=== PATIENT | female | born 1945 | race Caucasian/White ===

== ENCOUNTER → 2017-02-25 | Outpatient (CLI) | payer MEDICARE, OTHER | END | disposition home or self-care (01) | LOC: GMAJ 10:24 | PROVIDERS: ATTEND Family Medicine | DX: I10 Essential (primary) hypertension (principal) ==

== ENCOUNTER → 2017-03-01 | Outpatient (CLI) | payer MEDICARE, OTHER ==
--- NOTE | 2017-03-02 08:55 | MRI ---
EXAM DESCRIPTION: Abdomen w/wo Contrast CLINICAL HISTORY: 71 years, Female, HEPATIC LESION COMPARISON: None. TECHNIQUE: MRI before multiple sequences of the abdomen with and without gadolinium contrast FINDINGS: Liver appears unremarkable. No evidence of masses. No evidence of significant fatty infiltration. Left kidney slightly atrophic. Right kidney and the adrenal glands unremarkable. Pancreas and spleen gallbladder unremarkable. No fluid masses or adenopathy seen abdomen. The included bowel appear unremarkable. As well as the lung bases and surrounding soft tissues. IMPRESSION: Unremarkable MRI of the abdomen Electronically signed by: Umberto Bonilla MD 03/02/2017 8:54 AM CDT
== END ==
LOC: MRI 08:22
PROVIDERS: ATTEND Family Medicine
DX: D37.6 Neoplasm of uncertain behavior of liver, gallbladder and bile ducts (principal)

== ENCOUNTER → 2017-03-11 | Outpatient (CLI) | payer MEDICARE, OTHER ==
--- NOTE | 2017-03-14 10:35 | US ---
EXAM DESCRIPTION: Bladder CLINICAL HISTORY: 71 years Female, OVERFLOW INCONTINENCE COMPARISON: None. FINDINGS: Sonographic evaluation of the bladder before and after voiding was obtained with the bladder volume small on the prevoiding study with moderate thickening of the bladder wall consistent with either a poorly distensible or incompletely distended bladder. A focal bladder wall mass or filling defect is not apparent with the prevoiding bladder volume estimated at 91 mL. Post voiding modest residual within the bladder is evident with the post voiding residual urine estimated at 66 mL with slightly greater thickening of the bladder wall. IMPRESSION: Small bladder volume with thick-walled bladder with a prevoiding volume of 91 mL and post voiding bladder volume of 66 mL. No focal lesions are identified. Electronically signed by: Chirag Portillo MD 03/14/2017 10:34 AM CDT
--- NOTE | 2017-03-14 11:01 | MRI ---
EXAM DESCRIPTION: Brain w/oContrast CLINICAL HISTORY: MEMORY LOSS COMPARISON: None available TECHNIQUE: Non contrast MRI of the brain is performed according to our usual protocol including multiplanar multi sequence technique. FINDINGS: MRI of the brain without contrast enhancement demonstrates mild age-appropriate atrophic changes with very slight prominence of the lateral ventricular system which is felt to be within the upper range of normal for the patient's age. Mild scattered periventricular white matter changes in both cerebral hemispheres is present with sparing of the brainstem and posterior fossa. No extra-axial fluid collections or midline shift or mass effect is noted. No restricted diffusion to suggest acute or subacute ischemia is seen. No evidence of acute or remote intracranial hemorrhage is noted. The visualized cerebellopontine angles and IACs are normal. The sellar and suprasellar region is normal. IMPRESSION: Mild age-related atrophic changes and periventricular white matter changes without acute abnormality. Electronically signed by: Chirag Portillo MD 03/14/2017 11:01 AM CDT
== END ==
LOC: US 12:50
PROVIDERS: ATTEND Family Medicine
DX: R41.82 Altered mental status, unspecified (principal); N39.490 Overflow incontinence

== ENCOUNTER → 2017-05-02 | Outpatient (CLI) | payer MEDICARE, OTHER | END | disposition home or self-care (01) | LOC: YCFC.O 09:08 | PROVIDERS: ATTEND Anesthesiology Pain Medicine | DX: Z79.891 Long term (current) use of opiate analgesic (principal) ==

== ENCOUNTER → 2017-07-19 | Outpatient (CLI) | payer MEDICARE, OTHER | END | disposition home or self-care (01) | LOC: YCFC.O 15:17 | PROVIDERS: ATTEND Anesthesiology Pain Medicine | DX: Z79.891 Long term (current) use of opiate analgesic (principal) ==

== ENCOUNTER 2017-11-17 07:08 | Observation (INO) | payer MEDICARE, OTHER ==
[2017-11-17] MEDS ORDERED: SODIUM CHLORIDE 0.9% (FLUSH) 10 ML SYG IV PRN ×2 (07:18→12:09)
[2017-11-17] MEDS ORDERED: ASPIRIN TABLET 325 MG TAB PO ONE (07:18)
[2017-11-17] MEDS ORDERED: NITROGLYCERIN 0.4 MG 25 EA TAB SL ONE (07:18)
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
[2017-11-17] MEDS ORDERED: SODIUM CHLORIDE 0.9% 500ML 500 ML IVS ONE (07:22)
--- NOTE | 2017-11-17 08:06 | RAD ---
EXAM DESCRIPTION: Chest,1 View CLINICAL HISTORY: pain COMPARISON: October 14, 2008 IMPRESSION: Single upright portable frontal view of the chest. Evaluation is somewhat limited due to patient's body habitus and technique. Given this limitation, cardiac silhouette shows upper limits heart size. Subtle linear opacities in the bilateral lung bases, most likely representing linear atelectasis. Otherwise, lungs are clear without definite focal consolidative infiltrates. No significant pleural effusion. No pneumothorax. Electronically signed by: Umberto Sylvester MD 11/17/2017 8:05 AM CERTIFIED NUCLEAR MEDICINE TECHNOLOGIST
[2017-11-17] MEDS ORDERED: NITROFURANTOIN MONOHYDRATE MAC 100 MG CAP PO ONE (10:25)
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
[2017-11-17] MEDS ORDERED: DEXTROSE 50% 25 GM/50 ML SYG IV PRN (12:09)
[2017-11-17] MEDS ORDERED: GLUCAGON INJ 1 MG VIAL SUBCU PRN (12:09)
[2017-11-17] MEDS ORDERED: ACETAMINOPHEN 325 MG TAB PO PRN (12:09)
[2017-11-17] MEDS ORDERED: MORPHINE SULFATE INJ 10 MG/ML VIAL IV PRN (12:09)
[2017-11-17] MEDS ORDERED: NITROGLYCERIN 0.4 MG 25 EA TAB SL PRN (12:09)
[2017-11-17] MEDS ORDERED: IV SET AND CAP CHANGE INJ INJ SCH (12:30)
[2017-11-17] MEDS ORDERED: SODIUM CHL 0.9% 50ML MIN-BAG+ 50 ML IVPB ONE (15:44)
[2017-11-17] MEDS ORDERED: cefTRIAXone SODIUM 1 GM VIAL ONE (15:44)
--- NOTE | 2017-11-17 15:50 | CT ---
EXAM DESCRIPTION: Abdomen/Pelvis w/Contrast CLINICAL HISTORY: RUQ ; epigastirc pain w/chest pain ; NV COMPARISON: MRI abdomen March 01, 2017 TECHNIQUE: Postcontrast CT images of the abdomen and pelvis are obtained using standard imaging protocol. This exam was performed according to our departmental dose-optimization program, which includes automated exposure control, adjustment of the mA and/or kV according to patient size and/or use of iterative reconstruction technique . FINDINGS: Visualized lung bases are unremarkable. Calcifications of the mitral valve annulus and mild coronary artery calcifications are seen. The heart is enlarged. The liver, spleen, pancreas, adrenal glands, gallbladder are unremarkable. Moderate calcific atherosclerotic disease is seen. Right kidney is malrotated. Left kidney is small with focal areas of cortical thinning or scarring in the mid to upper pole region. No hydronephrosis or significant nephrolithiasis. Urinary bladder is contracted. There is surgical absence of the uterus. There is enlargement of the left ovary with nodular appearance measuring approximately 5.3 x 2.7 x 3.6 cm. The right ovary is unremarkable. Appendix is unremarkable. Small hiatal hernia. Stomach is contracted. No small bowel obstruction. Moderate fat-containing umbilical hernia. The hernia sac measures 5.8 x 4.7 cm. Mild scattered diverticuli of colon are seen without associated inflammatory changes or fluid collections Moderate degenerative changes and postsurgical changes to lumbar spine IMPRESSION: No acute findings on CT of the abdomen and pelvis. Colon diverticulosis without CT evidence of diverticulitis. Moderate fat-containing umbilical hernia seen. Electronically signed by: Georges Sorensen MD 11/17/2017 3:49 PM RETENTION REPRESENTATIVE
[2017-11-17] MEDS: cefTRIAXone SODIUM 1 GM in SODIUM CHL 0.9% 50ML MIN-BAG+ 50 ML IVPB SCH (15:51)
[2017-11-17] MEDS: LOSARTAN POTASSIUM 25 MG TAB PO SCH (15:51)
[2017-11-17] MEDS ORDERED: PANTOPRAZOLE INJECTION 40 MG in SODIUM CHLORIDE 0.9% 100ML 100 ML IVPB ONE (16:20)
[2017-11-17] MEDS ORDERED: SUCRALFATE 1 GM TAB PO SCH (16:30)
[2017-11-17] MEDS: METOCLOPRAMIDE HCL 5 MG TAB PO SCH ×4 (16:58→20:16)
[2017-11-17] MEDS ORDERED: SODIUM CHLORIDE 0.9% 100ML 100 ML IVPB ONE (16:58)
[2017-11-17] MEDS ORDERED: METOCLOPRAMIDE HCL 5 MG TAB PO ONE (16:58)
[2017-11-17] MEDS ORDERED: PANTOPRAZOLE SODIUM IV 40 MG VIAL ONE (16:58)
[2017-11-17] MEDS: INSULIN LISPRO 100 UNITS/ML PEN SUBCU SCH ×2 (17:22→21:25)
[2017-11-17] MEDS: SUCRALFATE 1 GM/10 ML 1 GM UD PO SCH ×2 (17:24→20:16)
[2017-11-17] MEDS: KCL 20 MEQ/NS 1,000 ML IVS PRN (18:42)
--- NOTE | 2017-11-17 19:04 | PCM.CORE ---
Physician DVT/VTE - Nurse DVT Assessment & Total Each Risk Factor Represents 3 Points: Medical PT with Hx of [place], CHF, Severe infection/sepsis Each Risk Factor is 1 Point: Obesity (BMI >25) DVT Assessment Score: 4 - 5 or more Very High Risk Treatments: Early Ambulation *, Sequential Compression Device Pharmacological: Enoxaparin 40mg SQ Daily
[2017-11-17] MEDS ORDERED: ENOXAPARIN SODIUM 40 MG/0.4 ML SYG SUBCU SCH (19:30)
[2017-11-17] MEDS ORDERED: busPIRone HCL 5 MG TAB ONE (20:11)
[2017-11-17] MEDS: SODIUM CHLORIDE 0.9% (FLUSH) 10 ML SYG IV SCH (20:17)
[2017-11-17] MEDS ORDERED: NON-FORMULARY MEDICATION 1 EA MIS (Buspirone Hcl [Buspirone Hcl] 15 MG) PO SCH (21:00)
[2017-11-18] MEDS ORDERED: SODIUM CHL 0.9% 50ML MIN-BAG+ 50 ML IVPB ONE ×3 (02:24→20:09)
[2017-11-18] MEDS ORDERED: cefTRIAXone SODIUM 1 GM VIAL ONE ×3 (02:25→20:10)
[2017-11-18] MEDS: cefTRIAXone SODIUM 1 GM in SODIUM CHL 0.9% 50ML MIN-BAG+ 50 ML IVPB SCH ×2 (02:50→14:46)
[2017-11-18] MEDS ORDERED: DULoxetine HCL 30 MG CAP PO ONE (05:13)
[2017-11-18] MEDS ORDERED: ASPIRIN TABLET 325 MG TAB ONE (05:14)
[2017-11-18] MEDS ORDERED: busPIRone HCL 5 MG TAB ONE (05:14)
[2017-11-18] MEDS: SUCRALFATE 1 GM/10 ML 1 GM UD PO SCH ×4 (06:41→21:17)
[2017-11-18] MEDS: METOCLOPRAMIDE HCL 5 MG TAB PO SCH ×4 (06:42→21:17)
[2017-11-18] MEDS: INSULIN LISPRO 100 UNITS/ML PEN SUBCU SCH ×4 (08:00→21:24)
[2017-11-18] MEDS ORDERED: NON-FORMULARY MEDICATION 1 EA MIS (Losartan Potassium & Hydrochlo [Losartan Potassium/Hydr PO SCH (09:00)
[2017-11-18] MEDS: ASPIRIN TABLET 325 MG TAB PO SCH (09:26)
[2017-11-18] MEDS: DULoxetine HCL 30 MG CAP PO SCH (09:26)
[2017-11-18] MEDS: busPIRone HCL 5 MG TAB PO SCH ×2 (09:28→21:17)
[2017-11-18] MEDS: LOSARTAN POTASSIUM 25 MG TAB PO SCH (09:29)
[2017-11-18] MEDS: SODIUM CHLORIDE 0.9% (FLUSH) 10 ML SYG IV SCH ×2 (09:30→21:17)
[2017-11-18] MEDS: ATORVASTATIN 20 MG TAB PO SCH (09:30)
[2017-11-18] MEDS: LOSARTAN POTASSIUM 100 MG TAB PO SCH (09:59)
[2017-11-18] MEDS: hydroCHLOROthiazide 25 MG TAB PO SCH (10:13)
[2017-11-18] MEDS: KCL 20 MEQ/NS 1,000 ML IVS PRN (13:28)
[2017-11-18] MEDS ORDERED: ENOXAPARIN SODIUM 40 MG/0.4 ML SYG SUBCU SCH (21:00)
[2017-11-18] MEDS ORDERED: diphenhydrAMINE HCL 25 MG CAP PO ONE (21:20)
[2017-11-19] MEDS: cefTRIAXone SODIUM 1 GM in SODIUM CHL 0.9% 50ML MIN-BAG+ 50 ML IVPB SCH (03:22)
[2017-11-19] MEDS: SUCRALFATE 1 GM/10 ML 1 GM UD PO SCH ×3 (06:49→12:00)
[2017-11-19] MEDS: METOCLOPRAMIDE HCL 5 MG TAB PO SCH ×3 (06:49→12:00)
[2017-11-19] MEDS: INSULIN LISPRO 100 UNITS/ML PEN SUBCU SCH ×2 (08:03→11:55)
[2017-11-19] MEDS: KCL 20 MEQ/NS 1,000 ML IVS PRN (08:12)
[2017-11-19] MEDS: busPIRone HCL 5 MG TAB PO SCH (09:29)
[2017-11-19] MEDS: hydroCHLOROthiazide 25 MG TAB PO SCH (09:29)
[2017-11-19] MEDS: LOSARTAN POTASSIUM 100 MG TAB PO SCH (09:29)
[2017-11-19] MEDS: ATORVASTATIN 20 MG TAB PO SCH (09:29)
[2017-11-19] MEDS: ASPIRIN TABLET 325 MG TAB PO SCH (09:29)
[2017-11-19] MEDS: DULoxetine HCL 30 MG CAP PO SCH (09:29)
[2017-11-19] MEDS: SODIUM CHLORIDE 0.9% (FLUSH) 10 ML SYG IV SCH (09:30)
[2017-11-19] MEDS ORDERED: FLUCONAZOLE 150 MG TAB PO ONE (13:05)
[2017-11-19 16:37] VITALS: BP 150/84; TEMP 97.6; O2SAT 98
== END 2017-11-19 14:55 | disposition home or self-care (01) ==
LOC: ER 07:08 → MS 11:21
PROVIDERS: ADMIT Nurse Practitioner Family; ATTEND Nurse Practitioner Acute Care
DX: N39.0 Urinary tract infection, site not specified (principal); B96.89 Other specified bacterial agents as the cause of diseases classified elsewhere; E11.65 Type 2 diabetes mellitus with hyperglycemia; R07.89 Other chest pain; R06.02 Shortness of breath; R11.2 Nausea with vomiting, unspecified; E78.5 Hyperlipidemia, unspecified; I10 Essential (primary) hypertension; N28.9 Disorder of kidney and ureter, unspecified; M51.36 Other intervertebral disc degeneration, lumbar region; E66.9 Obesity, unspecified; K42.9 Umbilical hernia without obstruction or gangrene; K57.30 Diverticulosis of large intestine without perforation or abscess without bleeding; Z68.41 Body mass index [BMI] 40.0-44.9, adult; Z91.14 Patient's other noncompliance with medication regimen; Z79.4 Long term (current) use of insulin; Z79.899 Other long term (current) drug therapy; Z87.891 Personal history of nicotine dependence; Z85.828 Personal history of other malignant neoplasm of skin; Z85.42 Personal history of malignant neoplasm of other parts of uterus; Z90.710 Acquired absence of both cervix and uterus
CPT/HCPCS: 36415 ×3; 36416 ×9; 71045; 74177; 80048; 80053; 80061; 80076; 81001; 82550 ×3; 82553 ×3; 82948 ×8; 83690; 83880; 84484 ×4; 85025 ×2; 85379; 85610; 85730; 87086; 87088; 87186; 93005 ×2; 94760 ×5; 96365; 96366; 96372 ×3; 96375; 96376; 99284; G0378; J0696 ×4; J1650 ×2; J1815; J3480 ×3; J7040; J7050 ×5; Q0163

== ENCOUNTER 2018-01-15 03:10 | Observation (INO) | payer MEDICARE, OTHER ==
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
[2018-01-15] MEDS ORDERED: ONDANSETRON INJ 4 MG/2 ML VIAL IV ONE (04:04)
--- NOTE | 2018-01-15 04:27 | RAD ---
2 VIEWS right HUMERUS RADIOGRAPHIC SERIES. INDICATIONS: Pain post fall. COMPARISONS: None. FINDINGS: Disease in the partially visualized right shoulder. No fractures or dislocations. No radiopaque soft tissue foreign bodies. No lytic or blastic bone lesions. IMPRESSION: Degenerative disease. No fractures or dislocations. Electronically signed by: Elijah Woo MD 01/15/2018 4:26 AM CDT
--- NOTE | 2018-01-15 04:27 | CT ---
EXAMINATION: NONCONTRAST PELVIC CT EXAMINATION. REFERRAL DIAGNOSIS: Post fall. COMPARISONS: Abdomen and pelvic radiographic series of November 17, 2017. PROCEDURE: Using low-dose helical technique, thin section axial images were performed through the abdomen and pelvis without the administration of intravenous or oral contrast material. FINDINGS: Sequela of remote lower lumbosacral spine surgery. 4.5 mm degenerative L4/L5 spondylolisthesis. No evidence of hip fracture. No pelvic or sacral fractures. No lytic or blastic bone lesions. Sigmoid colon diverticulosis without evidence of diverticulitis. Unenhanced urinary bladder is normal. Remote hysterectomy. Residual left ovary appears grossly normal. No free pelvic fluid. No groin hernia or pelvic floor hernia. IMPRESSION: 1. No fractures or dislocations. 2. Degenerative disease in the lumbosacral spine. Sequela of remote lower lumbar spine surgery. 3. Sigmoid colon diverticulosis without diverticulitis. This exam was performed according to our departmental dose-optimization program, which includes automated exposure control, adjustment of the mA and/or kV according to patient size and/or use of iterative reconstruction technique. Electronically signed by: Elijah Woo MD 01/15/2018 4:25 AM CDT
[2018-01-15] MEDS ORDERED: MORPHINE SULFATE INJ 10 MG/ML VIAL IV ONE (05:24)
[2018-01-15] MEDS ORDERED: PROMETHAZINE HCL INJ 25 MG/ML VIAL IM ONE (05:24)
[2018-01-15] MEDS ORDERED: LEVALBUTEROL NEBS 1.25 MG/3 ML VIAL NEB PRN (05:25)
[2018-01-15] MEDS ORDERED: DEXTROSE 50% 25 GM/50 ML SYG IV PRN (05:25)
[2018-01-15] MEDS ORDERED: MAGNESIUM HYDROXIDE 30 ML UD PO PRN (05:25)
[2018-01-15] MEDS ORDERED: GLUCAGON INJ 1 MG VIAL SUBCU PRN (05:25)
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
[2018-01-15] MEDS ORDERED: IV SET AND CAP CHANGE INJ INJ SCH (05:30)
[2018-01-15] MEDS ORDERED: HYDROcodone 7.5MG/APAP 325MG 1 EA TAB PO PRN (05:38)
[2018-01-15] MEDS: OMEPRAZOLE CAP 20 MG CAP PO SCH (06:34)
[2018-01-15] MEDS: KETOROLAC TROMETHAMINE INJ 30 MG/ML VIAL IV SCH ×3 (06:38→21:29)
[2018-01-15] MEDS ORDERED: metFORMIN HCL 500 MG TAB PO SCH (07:30)
[2018-01-15] MEDS: INSULIN LISPRO 100 UNITS/ML PEN SUBCU SCH ×4 (08:21→21:27)
[2018-01-15] MEDS: POTASSIUM CHLORIDE 10 MEQ TAB PO SCH (08:25)
[2018-01-15] MEDS: POLYETHYLENE GLYCOL 3350 17 GM PCKT PO SCH (10:51)
[2018-01-15] MEDS: SODIUM CHLORIDE 0.9% (FLUSH) 10 ML SYG IV PRN ×3 (14:55→21:30)
[2018-01-15] MEDS: metFORMIN XR 500 MG TAB.ER.24 PO SCH (19:43)
[2018-01-15] MEDS ORDERED: INSULIN DETEMIR 100 UNITS/ML PEN SUBCU SCH (21:00)
[2018-01-15] MEDS: busPIRone HCL 5 MG TAB PO SCH (21:10)
[2018-01-15] MEDS: KCL 20 MEQ/NS 1,000 ML IVS PRN (21:10)
[2018-01-16] MEDS: SODIUM CHLORIDE 0.9% (FLUSH) 10 ML SYG IV PRN (05:45)
[2018-01-16] MEDS: KETOROLAC TROMETHAMINE INJ 30 MG/ML VIAL IV SCH ×2 (05:45→14:05)
[2018-01-16] MEDS: OMEPRAZOLE CAP 20 MG CAP PO SCH (05:57)
[2018-01-16] MEDS: INSULIN LISPRO 100 UNITS/ML PEN SUBCU SCH ×3 (07:34→17:24)
[2018-01-16] MEDS: POTASSIUM CHLORIDE 10 MEQ TAB PO SCH (07:35)
[2018-01-16] MEDS: metFORMIN XR 500 MG TAB.ER.24 PO SCH ×2 (07:36→17:24)
[2018-01-16] MEDS: KCL 20 MEQ/NS 1,000 ML IVS PRN (08:30)
[2018-01-16] MEDS: busPIRone HCL 5 MG TAB PO SCH (08:33)
[2018-01-16] MEDS: POLYETHYLENE GLYCOL 3350 17 GM PCKT PO SCH (08:34)
[2018-01-16] MEDS ORDERED: LOSARTAN POTASSIUM 100 MG TAB PO SCH (09:00)
[2018-01-16] MEDS ORDERED: FUROSEMIDE 40 MG TAB PO SCH (09:00)
[2018-01-16] MEDS ORDERED: DULoxetine HCL 30 MG CAP PO SCH (09:00)
[2018-01-16] MEDS ORDERED: LIRAGLUTIDE 1.8 MG SC SCH (09:00)
[2018-01-16 11:31] VITALS: O2SAT 95
[2018-01-16 14:56] VITALS: BP 136/82; TEMP 98.1
[2018-01-16] MEDS ORDERED: ATORVASTATIN 20 MG TAB PO SCH (21:00)
== END 2018-01-16 18:15 ==
LOC: ER 03:10 → MS 05:26
PROVIDERS: ADMIT Emergency Medicine; ATTEND Nurse Practitioner Family
DX: E87.6 Hypokalemia (principal); M25.511 Pain in right shoulder; M51.36 Other intervertebral disc degeneration, lumbar region; G89.29 Other chronic pain; M62.81 Muscle weakness (generalized); R26.89 Other abnormalities of gait and mobility; R29.6 Repeated falls; E11.42 Type 2 diabetes mellitus with diabetic polyneuropathy; K42.9 Umbilical hernia without obstruction or gangrene; E78.5 Hyperlipidemia, unspecified; I10 Essential (primary) hypertension; K57.30 Diverticulosis of large intestine without perforation or abscess without bleeding; E66.9 Obesity, unspecified; Z68.42 Body mass index [BMI] 45.0-49.9, adult; Z91.81 History of falling; Z79.4 Long term (current) use of insulin; Z79.891 Long term (current) use of opiate analgesic; Z79.899 Other long term (current) drug therapy; Z88.0 Allergy status to penicillin; Z88.6 Allergy status to analgesic agent; Z87.891 Personal history of nicotine dependence; Z85.828 Personal history of other malignant neoplasm of skin; Z85.42 Personal history of malignant neoplasm of other parts of uterus
CPT/HCPCS: 36415 ×3; 36416 ×7; 72192; 73060; 80048; 80053; 81001; 82550; 82948 ×7; 83036; 84443; 85025 ×2; 85379; 94760 ×3; 96365; 96366 ×2; 96372 ×3; 96375 ×2; 96376 ×2; 97162; 97530; 99284; G8978; G8979; J1815 ×2; J1885 ×5; J2270; J2405; J2550; J3480 ×2

== ENCOUNTER → 2018-02-15 | Outpatient (CLI) | payer MEDICARE, OTHER ==
--- NOTE | 2018-02-15 10:24 | MRI ---
MRI of brain without intravenous contrast HISTORY:ALTERED MENTAL STATUS, UNSPECIFIED COMPARISON: MRI of March 11, 2017 TECHNIQUE: Routine MRI protocol of brain, including supplemental diffusion-weighted imaging, without intravenous contrast administration. FINDINGS: Unremarkable morphologic appearance of brain parenchyma, without focal mass nor midline shift nor abnormal extra-axial fluid collection. Corpus callosum is normal in appearance without developmental deficit. No abnormal cerebellar tonsillar herniation into foramen magnum. No focus of highly restricted diffusion to indicate acute or recent infarction. No susceptibility artifact seen on gradient echo imaging to indicate hemosiderin deposition in brain. Ventricles are midline in position and normal in caliber. Stable minimal to mild extent of nonspecific Central white matter signal abnormalities in both cerebral hemispheres. Basal cisterns and fissures are unremarkably patent. Major intracranial arterial vessels are grossly patent by spin-echo criteria, and with normal caliber. No obvious bony abnormality along calvarium nor skull base. No abnormality detected in either orbit. Visualized paranasal sinuses, middle ear cavities and mastoid air cells are well aerated. IMPRESSION: 1. No acute or recent infarction detected in brain. 2. No focal mass, midline shift, nor blood product deposition in brain. 2. Stable minimal to mild extent of nonspecific Central white matter signal abnormalities in both cerebral hemispheres Electronically signed by: John Gramajo MD 02/15/2018 10:22 AM CDT
== END ==
LOC: MRI 08:38
PROVIDERS: ATTEND Family Medicine
DX: R41.82 Altered mental status, unspecified (principal)

== ENCOUNTER → 2018-02-21 | Outpatient (CLI) | payer MEDICARE, OTHER | LOC: BFHH 15:29 | PROVIDERS: ATTEND Family Medicine | DX: N39.0 Urinary tract infection, site not specified (principal) ==

== ENCOUNTER → 2018-03-01 | Outpatient (CLI) | payer MEDICARE, OTHER | LOC: BFHH 10:27 | PROVIDERS: ATTEND Family Medicine | DX: I11.0 Hypertensive heart disease with heart failure (principal); I50.9 Heart failure, unspecified; E11.65 Type 2 diabetes mellitus with hyperglycemia; E78.5 Hyperlipidemia, unspecified; E03.9 Hypothyroidism, unspecified ==

== ENCOUNTER → 2018-05-23 | Outpatient (CLI) | payer MEDICARE, OTHER | LOC: GMAJ 14:40 | PROVIDERS: ATTEND Family Medicine | DX: R30.0 Dysuria (principal) ==

== ENCOUNTER → 2018-07-06 | Outpatient (CLI) | payer MEDICARE, OTHER | LOC: BFHH 14:53 | PROVIDERS: ATTEND Psychiatry & Neurology Neurology | DX: G37.9 Demyelinating disease of central nervous system, unspecified (principal); R41.3 Other amnesia; Z79.891 Long term (current) use of opiate analgesic ==

== ENCOUNTER → 2018-07-20 | Outpatient (CLI) | payer MEDICARE, OTHER ==
--- NOTE | 2018-07-20 16:31 | CT ---
EXAM DESCRIPTION: Cervical Spine: Computed Tomography. CLINICAL HISTORY: CERVICAL DISC DISORDER W RADICULOPATHY, HIGH CERVICAL REGION. ACDF C6-11 January 2018. Fall on July 19, 2018. COMPARISON: CT scan neck soft tissues 02/23/2016. TECHNIQUE: Spiral, axial 2.5 mm scans through the cervical spine without contrast. Coronal and sagittal 2.0 mm Reconstructions. Total Exam DLP: 458.24 mGy-cm. This exam was performed according to our departmental dose-optimization program which includes automated exposure control, adjustment of the mA and/or kV according to patient size and/or use of iterative reconstruction technique; to reduce radiation dose to as low as reasonably achievable (ALARA). FINDINGS: ACDF C6-C7. Gap of 4.4 mm between the inferior aspect of the posterior metal plate surface and the anterior cortex of the C7 vertebral body. Radiodense material is visualized between the posterior plate, and C7 anterior vertebral body, in the anterior C6-7 disc space. Interbody fusion device is in the anterior disc space. No significant ossification around the device. No canal stenosis. Bilateral uncinate spurs. Borderline left neural foraminal stenosis. Marginal spurs around the atlantoaxial joint. Anatomic alignment. Atlantooccipital joint is intact. Bilateral C1-C2 facet joints show minimal hypertrophy. Incomplete fusion line in the mid odontoid. Bilateral foramina are patent. C2-3 through C5-6 disc spaces are unremarkable. Anterior endplate ridging to the right of midline at C5-6. Bilateral foramina are patent. Facets are unremarkable. No spondylolisthesis, vertebral body compression fracture, and no posterior element fractures. C7-T1 disc space narrowed. Bilateral facet arthrosis. Canal is patent. Bilateral neural foraminal narrowing more left than right. Minimal narrowing of the T1-2 disc. No canal stenosis. Bilateral facet arthrosis. Moderate left neural foraminal narrowing and mild right neural foraminal narrowing. Spine is slightly kyphotic at C5-C7. No spondylolisthesis. IMPRESSION: 1. No compression type vertebral body fracture or spondylolisthesis. Posterior elements are intact. No perched or locked facets. The spine is mildly kyphotic 2. ACDF C6-C7 with bony density between the inferior aspect of the plate, and the C7 vertebral body. This is not interpreted the acute. Interbody fusion device in the anterior disc space with minimal if any ossification around the device. No canal stenosis and borderline left neural foraminal stenosis. 3. C7-T1 disc space narrowing with bilateral facet arthrosis and moderate neural foraminal narrowing on the left.. Electronically signed by: Juan Nelson MD 07/20/2018 4:30 PM CDT
== END ==
LOC: CT 07:59
PROVIDERS: ATTEND Psychiatry & Neurology Neurology
DX: M50.11 Cervical disc disorder with radiculopathy, high cervical region (principal)

== ENCOUNTER → 2018-08-03 | Outpatient (CLI) | payer MEDICARE, OTHER | LOC: BFHH 12:16 | PROVIDERS: ATTEND Psychiatry & Neurology Neurology | DX: Z79.891 Long term (current) use of opiate analgesic (principal); G37.9 Demyelinating disease of central nervous system, unspecified ==

== ENCOUNTER → 2018-08-22 | Outpatient (CLI) | payer MEDICARE, OTHER | LOC: BFHH 15:53 | PROVIDERS: ATTEND Family Medicine | DX: N39.0 Urinary tract infection, site not specified (principal) ==

== ENCOUNTER → 2018-11-13 | Outpatient (CLI) | payer MEDICARE, OTHER ==
--- NOTE | 2018-11-13 16:13 | CT ---
EXAM DESCRIPTION: Head CLINICAL HISTORY: MUSCLE WEAKNESS COMPARISON: Previous CT head October 10, 2008 TECHNIQUE: Noncontrast head CT was performed with routine protocol. FINDINGS: Normal moore-white matter differentiation. Ventricles and sulci are prominent consistent with age-related cerebral volume loss. Low density white matter indicates chronic microvascular ischemic changes. These findings have progressed since the previous study. No high density hemorrhage, focal edema or shift of the midline. No sulcal effacement. Normal orbital contents. Basilar cisterns appear clear. Intact calvarium with no fracture or lytic lesion. Normal aeration of tympanic cavities and mastoid air cells. Opacification of the right maxillary sinus may be fluid or large mucous retention cyst.. Skull base appears intact. Symmetrical internal auditory canals. IMPRESSION: Senescent brain with chronic microvascular ischemic changes. No acute intracranial pathologic process. This exam was performed according to our departmental dose-optimization program, which includes automated exposure control, adjustment of the mA and/or kV according to patient size and/or use of iterative reconstruction technique. Total DLP equals 859.97 mGycm. Electronically signed by: Pancho Larry MD 11/13/2018 4:12 PM [facility]
== END ==
LOC: CT 15:36
PROVIDERS: ATTEND Family Medicine
DX: M62.81 Muscle weakness (generalized) (principal)

== ENCOUNTER → 2018-11-14 | Outpatient (CLI) | payer MEDICARE, OTHER | LOC: GMAJ 15:43 | PROVIDERS: ATTEND Family Medicine | DX: N39.0 Urinary tract infection, site not specified (principal) ==

== ENCOUNTER 2019-01-11 13:26 | Emergency (ER) | payer MEDICARE, OTHER ==
--- NOTE | 2019-01-11 13:39 | ED.PDOC ---
History of Present Illness - General Chief Complaint: Trauma Time Seen by Provider: 01/11/19 13:33 Source: RN notes reviewed, EMS notes reviewed Additional Information: 73 YEAR OLD FELL WHILE GETTING DOWN FROM HER CAR FACE FIRST ( SHE HAS RIGHT HEMIPLEGIA ) THEREFORE UNABLE TO HOLD HERSELF FROM FALLING HIT THE FOREHEAD ON THE GROUND NO LOSS OF CONSCIOUSNESS SHE HAS ABRASIONS ON THE FOREHEAD AND DORSUM OF THE RIGHT HAND SHE HAS RESIDUAL HEMIPLEGIA ON THE RIGHT SIDE SHE IS AWAKE ALERT ORIENTED TO PLACE TIME AND PERSON - History of Present Illness Occurred: just prior to arrival Severity: moderate Pain Location: face, neck Method of Injury: direct blow Improving Factors: nothing Worsening Factors: immobilization Loss of Consciousness: no loss of consciousness Allergies/Adverse Reactions: Allergies Penicillins Allergy (Verified 01/11/19 13:48) Home Medications: Ambulatory Orders Atorvastatin Calcium [Lipitor] 20 mg PO DAILY 11/17/17 Buspirone HCl 15 mg PO BID 11/17/17 Duloxetine HCl [Cymbalta] 60 mg PO DAILY 11/17/17 Metformin HCl [Metformin HCl ER] 500 mg PO BIDFD 11/17/17 Furosemide Tab [Lasix Tab] 40 mg PO DAILY 01/15/18 HYDROcodone 5MG/APAP 325MG [Bode 5/325] 1 ea PO Q4H PRN 01/15/18 Ibuprofen [Advil] 200 mg PO Q6H PRN 01/15/18 Ibuprofen-Diphenhydramine HCl [Advil Pm 200-25 mg] 1 cap PO BEDTIME PRN 01/15/18 Insulin NPH (Human) (Isophane) [Humulin N] 45 unit SC BID 01/15/18 Insulin Regular (Human) [Novolin R] 0 unit IJ ACHS PRN 01/15/18 Liraglutide [Victoza] 1.8 mg SC DAILY 01/15/18 Losartan Potassium 100 mg PO DAILY 01/15/18 Review of Systems - Review of Systems Constitutional: States: no symptoms reported EENTM: States: no symptoms reported Respiratory: States: no symptoms reported Cardiology: States: no symptoms reported Gastrointestinal/Abdominal: States: no symptoms reported Genitourinary: States: no symptoms reported Musculoskeletal: States: no symptoms reported Skin: States: no symptoms reported Neurological: States: no symptoms reported Endocrine: States: no symptoms reported Hematologic/Lymphatic: States: no symptoms reported Past Medical History (General) - Patient Medical History Hx Seizures: No Hx Stroke: No Hx Dementia: No Hx Asthma: No Hx of COPD: No Hx Cardiac Disorders: Yes Hx Congestive Heart Failure: Yes Hx Pacemaker: No Hx Hypertension: Yes Hx Diabetes: Yes Hx Gastroesophageal Reflux: No Hx Cancer: Yes - uterine-in remission Hx MRSA: No - Vaccination History Hx Tetanus, Diphtheria Vaccination: No - Social History Hx Tobacco Use: No Hx Chewing Tobacco Use: No Hx Alcohol Use: No Hx Substance Use: No Hx Physical Abuse: No Hx Emotional Abuse: No Hx Suspected Abuse: No - Female History Patient : No Family Medical History - Family History Father Cause of : [place] Hx Family Asthma: No Hx Family Congestive Heart Failure: No Hx Family Hypertension: No Hx Family Stroke: No Hx Cardiac Disease: Yes - dad-mi Hx Family Diabetes: No Hx Family Cancer: Yes - several family members:lung,liver Physical Exam - Physical Exam General Appearance: Alert, Comfortable Eye Exam: bilateral normal ENT Exam: no evidence of ENT injury, no dental injury, other - SKIN ABRASIONS ON THE FOREHEAD Neck Exam: non-tender, normal alignment, normal inspection Cardiovascular/Respiratory: regular rate, rhythm, no M/R/G, normal peripheral pulses, no JVD, normal breath sounds Gastrointestinal/Abdominal: normal bowel sounds, non tender, soft Back Exam: normal inspection, no CVA tenderness Extremity Exam: no pedal edema, pelvis stable, other - RIGHT HAND DORSUM THERE IS SKIN ABRASIONS Neurologic: other - OLD RIGHT HEMIPLEGIA Progress - Results/Orders Results/Orders: Laboratory Tests 01/11/19 01/11/19 01/11/19 13:43 13:43 13:43 WBC 8.3 RBC 4.13 L Hgb 12.9 Hct 38.6 MCV 93.4 MCH 31.3 H MCHC 33.5 RDW 15.6 H Plt Count 335 MPV 7.3 L Absolute Neuts (auto) 5.20 Absolute Lymphs (auto) 2.20 Absolute Monos (auto) 0.60 Absolute Eos (auto) 0.20 Absolute Basos (auto) 0.10 Neutrophils % 62.2 Lymphocytes % 26.8 Monocytes % 7.2 Eosinophils % 2.8 Basophils % 1.0 PT 9.3 INR 0.93 PTT (SP) 22.1 Sodium 138 Potassium 3.6 Chloride 103 Carbon Dioxide 23 Anion Gap 15.6 BUN 24 H Creatinine 1.14 BUN/Creatinine Ratio 21.1 H Random Glucose 102 Serum Osmolality 279.9 Calcium 8.9 Total Bilirubin 0.7 AST 20 ALT 20 Alkaline Phosphatase 82 Serum Total Protein 7.5 Albumin 3.9 Globulin 3.6 H Albumin/Globulin Ratio 1.1 RADIOLOGY REPORT ON CERVICAL SPINE CT HEAD AND CT FACIAL BONES ALL NORMAL NO FRACTURE DISLOCATION NOTED BRAIN NORMAL NO FACIAL TRAUMA X RAY OF THE SHOULDER CHEST UNREMARKABLE PT HAS BRUISED ON THE FOREHEAD DORSUM OF THE RIGHT HAND RIGHT SHOULDER TENDERNESS NORMAL ABDOMINAL AND PELVIC EXAM MAY BE DISCHARGED HOME SHE CAN TAKE HER HOME PAIN MEDICATIONS Departure - Departure Clinical Impression: Contusion of neck, Contusion, multiple sites Time of Disposition: 14:46 Disposition: Discharge to Home or Self Care Condition: Good Departure Forms: ED Discharge - Pt. Copy, Patient Portal Self Enrollment Instructions: DI for Trauma Diet: resume usual diet Activity: ambulate only with walker Referrals: Quinten Bone MD [Primary Care Provider] - 1-2 Weeks Home Medications: Ambulatory Orders Atorvastatin Calcium [Lipitor] 20 mg PO DAILY 11/17/17 Buspirone HCl 15 mg PO BID 11/17/17 Duloxetine HCl [Cymbalta] 60 mg PO DAILY 11/17/17 Metformin HCl [Metformin HCl ER] 500 mg PO BIDFD 11/17/17 Furosemide Tab [Lasix Tab] 40 mg PO DAILY 01/15/18 HYDROcodone 5MG/APAP 325MG [Bode 5/325] 1 ea PO Q4H PRN 01/15/18 Ibuprofen [Advil] 200 mg PO Q6H PRN 01/15/18 Ibuprofen-Diphenhydramine HCl [Advil Pm 200-25 mg] 1 cap PO BEDTIME PRN 01/15/18 Insulin NPH (Human) (Isophane) [Humulin N] 45 unit SC BID 01/15/18 Insulin Regular (Human) [Novolin R] 0 unit IJ ACHS PRN 01/15/18 Liraglutide [Victoza] 1.8 mg SC DAILY 01/15/18 Losartan Potassium 100 mg PO DAILY 01/15/18
[2019-01-11] MEDS ORDERED: MORPHINE SULFATE INJ 10 MG/ML VIAL IV ONE (13:43)
[2019-01-11] MEDS ORDERED: ONDANSETRON INJ 4 MG/2 ML VIAL IV ONE (13:43)
[2019-01-11 13:50] VITALS: TEMP 99.4; O2SAT 97
--- NOTE | 2019-01-11 14:23 | CT ---
EXAM DESCRIPTION: Head CLINICAL HISTORY: trauma COMPARISON: Previous CT head November 13, 2018 TECHNIQUE: Noncontrast head CT was performed with routine protocol. FINDINGS: Soft tissue hematoma in the frontal region is seen which is new or increased compared to previous study. No underlying calvarial fracture on bone window images. Normal moore-white matter differentiation. Ventricles and sulci are normal for age. No density cerebral white matter is consistent with chronic microvascular ischemic change. Intracranial findings are stable compared to the previous study in November 2018 No high density hemorrhage, focal edema or shift of the midline. No sulcal effacement. Normal orbital contents. Basilar cisterns appear clear. Intact calvarium with no fracture or lytic lesion. Normal aeration of tympanic cavities and mastoid air cells. No fluid levels in the paranasal sinuses. Large mucous retention cyst in the right maxillary sinus measures 2 cm. Skull base appears intact. Symmetrical internal auditory canals. There is extensive intracranial internal carotid calcification. Coronal and sagittal reformatted images confirm the findings. IMPRESSION: Frontal soft tissue hematoma. No underlying calvarial fracture. No acute intracranial pathologic process. This exam was performed according to our departmental dose-optimization program, which includes automated exposure control, adjustment of the mA and/or kV according to patient size and/or use of iterative reconstruction technique. Total DLP equals 752.48 mGycm. Electronically signed by: Pancho Larry MD 01/11/2019 2:[address] [facility]
--- NOTE | 2019-01-11 14:27 | RAD ---
Study: Single Frontal Radiograph of the Chest. Indication:trauma Comparison: November 17, 2017. Impression: Patient rotated to the right. Cardiomegaly without failure. Elevation right hemidiaphragm. Mild bibasilar atelectasis. No pleural effusion or pneumothorax. Lower cervical fusion construct noted. Electronically signed by: Tim Devries MD 01/11/2019 2:24 PM [employer]
--- NOTE | 2019-01-11 14:27 | CT ---
EXAM DESCRIPTION: Cervical Spine CLINICAL HISTORY: trauma COMPARISON: Previous CT cervical spine July 20, 2018 TECHNIQUE: Cervical CT is performed with thin-section axial imaging. MPRs are created and reviewed as well. FINDINGS: Axial bone window images reveal intact ring of C1. No abnormal widening of the atlantodens interval. No fracture of the vertebral bodies or transverse processes or posterior elements. Lung apices appear clear. No cervical mass or adenopathy. Sagittal reformatted images show normal alignment of vertebral bodies and facets. No jumped facet or facet fracture. Normal craniocervical alignment. No prevertebral soft tissue swelling. No avulsion of the spinous processes. Spondylosis: Anterior plate and screws related to previous C6-7 anterior interbody fusion. Prominent anterior projection of the lower endplate is seen near the upper esophageal region which could cause dysphagia. Clinical correlation recommended. Bone window images are negative for fracture. No dislocation. Mild degenerative spurring at posterior margin of C5-6 and C6-7. Compared to previous CT neck coronal and sagittal images, no change in alignment. Coronal reformatted images show normal atlantooccipital and atlantoaxial alignment. The base of the dens is intact as is the body of C2. Intact lateral masses. IMPRESSION: Negative for fracture or posttraumatic subluxation. This exam was performed according to our departmental dose-optimization program, which includes automated exposure control, adjustment of the mA and/or kV according to patient size and/or use of iterative reconstruction technique. Total DLP equals 458.24 mGycm. Electronically signed by: Pancho Larry MD 01/11/2019 2:24 PM [employer]
--- NOTE | 2019-01-11 14:28 | RAD ---
Two-view right shoulder Indication: TRUMA Comparison: None. Impression: Moderate AC joint osteoarthritis. Lateral downsloping acromion. Mild glenohumeral joint osteoarthritis. A.C. and glenohumeral joint alignment normal without acute fracture or dislocation. Electronically signed by: Tim Devries MD 01/11/2019 2:25 PM [facility]
--- NOTE | 2019-01-11 14:29 | RAD ---
Two-view right hand Indication: TRAUMA Comparison: None. Impression: No gross acute fracture or dislocation identified, however evaluation is limited due to positioning and osteopenia. If there is persistent anatomic snuffbox tenderness, repeat wrist imaging to include a scaphoid view is recommended in one week to evaluate for occult scaphoid fracture. Moderate osteoarthritis STT joint with mild to moderate changes first MCP joint and first IP joint. Mild changes of the PIP and DIP joints of the hand. Osteopenia. If this is a new finding, DEXA scan recommended as well as evaluation for possible osteoporosis treatment. Soft tissues are intact without radiopaque foreign body. Electronically signed by: Tim Devries MD 01/11/2019 2:26 PM [facility]
--- NOTE | 2019-01-11 14:35 | CT ---
EXAM DESCRIPTION: Sinuses maxillofacial CT CLINICAL HISTORY: trauma COMPARISON: None Available. TECHNIQUE: CT of the maxillofacial bones/paranasal sinuses is performed with direct axial imaging technique. Multiplanar reformatted images are reviewed post along with source images. FINDINGS: Mucous retention cysts in the right maxillary sinus are present, the largest measuring 2 cm. Nasal skeleton appears intact. Frontal hematoma is noted with no underlying fracture of the frontal bone or anterior frontal sinus wall. No fracture of the anterior or posterior maxillary bryant. Zygomatic arches appear intact. Normal TMJ alignment. Normal aeration of tympanic cavities and mastoid air cells. No fracture of the skull base. Patchy mucosal thickening in the ethmoid sinus air cells. Orbital contents are normal and symmetrical. Intact globes bilaterally. Included portions of the brain are unremarkable. Sagittal and coronal reformatted images were evaluated. Carotid calcification is present. On coronal images, no inferior orbital blowout fracture is seen on either side. There is medial displacement of the lamina papyracea on the left which appears well-corticated suggesting an old medial orbital blowout fracture. Comparing to previous head CT from November 13, 2018, coronal images included the orbits at that time. This same appearance was seen in the region of the medial left orbital wall. No evidence of medial rectus muscular entrapment. The right maxillary sinus was more densely opacified on the previous study suggesting acute sinusitis at that time. Present findings are more chronic in appearance. No free fluid in the sinus cavity. In the plane of the ostiomeatal units, 1 mm mucosal thickening narrows the maxillary sinus ostia bilaterally. There is bilateral middle nasal turbinate ursula bullosa. Mild narrowing of the hiatus semilunaris and middle meatus regions bilaterally by mucosal thickening. There is bilateral anterior ethmoidal arterial exposure. On the coronal images, nasal bone appears intact. Posteriorly there is slight leftward nasal septal deviation. The mandible is not entirely included on the present study. IMPRESSION: No acute facial bone fracture. Mucous retention cysts in the right maxillary sinus. This exam was performed according to our departmental dose-optimization program, which includes automated exposure control, adjustment of the mA and/or kV according to patient size and/or use of iterative reconstruction technique. Electronically signed by: Pancho Larry MD 01/11/2019 2:32 PM [facility]
[2019-01-11 15:09] VITALS: BP 159/78
== END 2019-01-11 15:00 | disposition home or self-care (01) ==
LOC: ER 13:26
DX: S10.93XA Contusion of unspecified part of neck, initial encounter (principal); S00.83XA Contusion of other part of head, initial encounter; S60.511A Abrasion of right hand, initial encounter; M25.511 Pain in right shoulder; I50.9 Heart failure, unspecified; I11.0 Hypertensive heart disease with heart failure; E11.9 Type 2 diabetes mellitus without complications; V48.4XXA Person boarding or alighting a car injured in noncollision transport accident, initial encounter; Y92.810 Car as the place of occurrence of the external cause; Z85.42 Personal history of malignant neoplasm of other parts of uterus; Z88.0 Allergy status to penicillin; Z79.899 Other long term (current) drug therapy; Z79.4 Long term (current) use of insulin
CPT/HCPCS: 36415; 70450; 70486; 71045; 72125; 73030; 73120; 80053; 85025; 85610; 85730; J2270; J2405